=== PATIENT | male | born 1965 | race Caucasian/White ===

== ENCOUNTER 2018-04-01 12:53 | Emergency (ER) | payer BC ==
[2018-04-01 13:11] VITALS: TEMP 97.8; O2SAT 98
--- NOTE | 2018-04-01 13:51 | RAD ---
EXAM DESCRIPTION: Abdomen Flat Upright CLINICAL HISTORY: 53 years Male, diffuse mid back pain 2 days COMPARISON: None. FINDINGS: There is no free subdiaphragmatic gas or intra-abdominal air-fluid level. There is a moderate amount of colonic stool and gas. No dilated small bowel loops. There is no suspicious intra-abdominal calcification or mass. No concerning bone lesion. IMPRESSION: Negative exam. Electronically signed by: Foster Pond MD 04/01/2018 1:50 PM CDT
--- NOTE | 2018-04-01 13:53 | RAD ---
EXAM DESCRIPTION: Chest,2 Views CLINICAL HISTORY: diffuse mid back pain 2 days COMPARISON: None available FINDINGS: The cardiomediastinal silhouette is unremarkable. There is no airspace consolidation or pleural effusion. The bronchovascular markings are within normal limits, and the lungs are not hyperinflated. There is no pneumothorax or acute fracture. IMPRESSION: Negative exam. Electronically signed by: Foster Pond MD 04/01/2018 1:51 PM CDT
[2018-04-01] MEDS ORDERED: CYCLOBENZAPRINE HCL 5 MG TAB PO ONE (14:06)
[2018-04-01] MEDS ORDERED: MAGNESIUM HYDROXIDE 30 ML UD PO ONE (14:06)
[2018-04-01] MEDS ORDERED: KETOROLAC TROMETHAMINE INJ 30 MG/ML VIAL IM ONE (14:06)
--- NOTE | 2018-04-01 14:09 | ED.PDOC ---
History of Present Illness - General Chief Complaint: General Stated Complaint: LEFT LOWER FLANK/BACK PAIN Time Seen by Provider: 04/01/18 12:56 Source: patient Exam Limitations: no limitations - History of Present Illness Initial Comments: the patient is a 53-year-old male presenting to the emergency room secondary to mid back pain that is somewhat roving over the last 24-72 hours. No vomiting. Questionable mild intermittent nausea. No fevers. He has recently traveled to [place]. He reports that the discomfort seemed to be bilateral last night but today it is localized little more to the left mid back posteriorly. No real fevers. No real abdominal pain. Mild cramping. He has been traveling a lot. He has not been drinking as much water as normal. Timing/Duration: unsure Severity: moderate Improving Factors: nothing Worsening Factors: nothing Associated Symptoms: denies symptoms Allergies/Adverse Reactions: Allergies NO KNOWN ALLERGY Allergy (Verified 04/01/18 13:08) Home Medications: Ambulatory Orders Cyclobenzaprine HCl [Flexeril] 5 mg PO TID PRN #30 tab 04/01/18 Review of Systems - Review of Systems Constitutional: States: no symptoms reported EENTM: States: no symptoms reported Respiratory: States: no symptoms reported Cardiology: States: no symptoms reported Gastrointestinal/Abdominal: States: nausea - mild intermittent Musculoskeletal: States: back pain Skin: States: no symptoms reported Neurological: States: no symptoms reported Endocrine: States: no symptoms reported All other Systems: No Change from Baseline Past Medical History (General) - Patient Medical History Hx Asthma: No Hx of COPD: No Hx Cardiac Disorders: No Hx Hypertension: No - Vaccination History Hx Tetanus, Diphtheria Vaccination: Yes Hx Influenza Vaccination: No Hx Pneumococcal Vaccination: No Immunizations Up to Date: No - Social History Hx Tobacco Use: No Hx Alcohol Use: Yes - OCC Hx Substance Use: No Hx Substance Use Treatment: No Family Medical History - Family History Mother Family History: No Known Physical Exam - Physical Exam General Appearance: Alert, Comfortable, No apparent distress Eye Exam: bilateral normal Ears, Nose, Throat: hearing grossly normal Neck: full range of motion, normal inspection Respiratory: lungs clear, normal breath sounds, no respiratory distress, no accessory muscle use Cardiovascular/Chest: normal peripheral pulses, regular rate, rhythm, no edema Peripheral Pulses: radial,right: 2+, radial,left: 2+ Gastrointestinal/Abdominal: non tender - no rebound or peritoneal signs. 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, alert, normal mood/affect, oriented x 3 Skin Exam: normal color Comments: Vital Signs - 24 hr 04/01/18 13:08 Temperature 97.8 F Pulse Rate [ 88 MONITOR] Respiratory 20 Rate Blood Pressure 146/83 [LA] O2 Sat by Pulse 98 Oximetry Laboratory Results - last 24 hr 04/01/18 13:11 Urine Color Yellow Urine Appearance Clear Urine pH 6.0 Ur Specific [place] >= 1.030 Urine Protein Negative Urine Glucose (UA) Negative Urine Ketones Negative Urine Blood Negative Urine Nitrite Negative Urine Bilirubin Negative Urine Urobilinogen 0.2 Ur Leukocyte Esterase Negative Urine RBC 0 Urine WBC 0 Ur Epithelial Cells 0 Urine Bacteria 0 chest x-ray shows no obvious infiltrate. Thoracic spine alignment appears to be as expected. Two-view abdomen shows moderate constipation. No obstruction. No free air. No unusual calcifications. Progress - Progress Progress: 04/01/18 14:10 the patient's a 53-year-old male presenting to the emergency room secondary to a somewhat roving mid back pain. The source of this is most likely constipation based on the x-ray. He is mildly dehydrated which is likely making the problem worse, and does need to increase his fluid intake. He was given a dose of milk of magnesia here. He also needs to excelsior picker and take MiraLAX daily for the next week. Needs to increase the fiber in his diet. There is the possibility he may be getting some mild radiculopathy to the left of the area adjacent to T10-T12. This is possibly from mild chronic arthritic changes. He has been instructed to do stretching exercises and exercises such as swimming, bicycling or rowing to help strengthen the paraspinal muscles and improve alignment to reduce any nerve irritation that might be occurring. Anti-inflammatories such as Aleve can be used twice daily with food to help reduce any inflammation in those areas and reduce symptoms. ER warnings were given. I would recommend that he follow-up with his primary care doctor later next week otherwise. he was given 1 dose of Toradol and 1 dose of Flexeril here in order to help produce some discomfort. Departure - Departure Clinical Impression: Mild dehydration Constipation Qualifiers: Constipation type: unspecified constipation type Qualified Code(s): K59.00 - Constipation, unspecified Disposition: Discharge to Home or Self Care Condition: Fair Departure Forms: ED Discharge - Pt. Copy, Patient Portal Self Enrollment Diet: other - high-fiber low-fat diet Activity: no pushing/pulling with affected limb Prescriptions: Cyclobenzaprine HCl [Flexeril] 5 mg PO TID PRN #30 tab PRN Reason: Muscle Spasms Home Medications: Ambulatory Orders Cyclobenzaprine HCl [Flexeril] 5 mg PO TID PRN #30 tab 04/01/18 Additional Instructions: the patient's a 53-year-old male presenting to the emergency room secondary to a somewhat roving mid back pain. The source of this is most likely constipation based on the x-ray. He is mildly dehydrated which is likely making the problem worse, and does need to increase his fluid intake. He was given a dose of milk of magnesia here. He also needs to excelsior picker and take MiraLAX daily for the next week. Needs to increase the fiber in his diet. There is the possibility he may be getting some mild radiculopathy to the left of the area adjacent to T10-T12. This is possibly from mild chronic arthritic changes. He has been instructed to do stretching exercises and exercises such as swimming, bicycling or rowing to help strengthen the paraspinal muscles and improve alignment to reduce any nerve irritation that might be occurring. Anti-inflammatories such as Aleve can be used twice daily with food to help reduce any inflammation in those areas and reduce symptoms. ER warnings were given. I would recommend that he follow-up with his primary care doctor later next week otherwise. he was given 1 dose of Toradol and 1 dose of Flexeril here in order to help produce some discomfort.
[2018-04-01 14:40] VITALS: BP 145/80
== END 2018-04-01 14:39 | disposition home or self-care (01) ==
LOC: ER 12:53
DX: K59.00 Constipation, unspecified (principal); E86.0 Dehydration; M54.6 Pain in thoracic spine; R10.9 Unspecified abdominal pain; Z79.899 Other long term (current) drug therapy
CPT/HCPCS: 71046; 74019; 81001; J1885